=== PATIENT | female | born 1980 | race Caucasian/White ===

== ENCOUNTER 2024-04-25 17:09 | Emergency (ER) | payer MEDICAID, SELFPAY ==
[2024-04-25 17:54] VITALS: BP 138/93; PULSE 88; TEMP 36.7; O2SAT 99; BMI 29.0
--- NOTE | 2024-04-25 18:07 | CT_ITS ---
The [address] [address] Patient Name: BRUCE RAMIREZ MRN: [id number] date: 1980 Sex: F Assigned Patient Location: ER Current Patient Location: ED.MAIN Accession/Order Number: [id number] Exam Date: 04/25/2024 18:19 Report Date: 04/25/2024 20:35 At the request of: BHARAT DE SANTIAGO Procedure: CT abdomen pelvis w con CT ABDOMEN AND PELVIS WITH CONTRAST: INDICATION: abdominal pain. COMPARISON: None. TECHNIQUE:Multiple thin section transaxial slices were acquired through the abdomen and pelvis with intravenous contrast. Coronal and sagittal reconstructed images were reviewed. Oral contrastWas not administered. FINDINGS: LOWER CHEST: The lower chest is unremarkable. LIVER: The liver is unremarkable. GALLBLADDER AND BILIARY SYSTEM: No obvious ductal dilation. No calcified stones. SPLEEN: Calcified granulomas are present in the spleen. PANCREAS: The pancreas is unremarkable. ADRENAL GLANDS: The adrenal glands are unremarkable. KIDNEYS AND URETERS: There is no hydronephrosis of the kidneys.No obstructing urologic calcifications are present. VASCULATURE: Vascularity is unremarkable. PERITONEUM/RETROPERITONEUM: Peritoneum/retroperitoneum is unremarkable. LYMPH NODES: No suspicious lymphadenopathy. GASTROINTESTINAL TRACT: The bowel is normal in caliber.No acute inflammatory changes are present in the bowel.The appendix is visualized and is not inflamed. BLADDER: The urinary bladder is unremarkable. REPRODUCTIVE SYSTEM: The uterus is absent. BODY WALL: There is a tiny fat-containing umbilical hernia. BONES: Osseous structures are unremarkable. CT/CT abdomen pelvis w con IMPRESSION: 1. No acute process in the abdomen or pelvis. Electronically authenticated by: ALBINO CAGE Date: 04/25/2024 20:35
--- NOTE | 2024-04-25 18:14 | ED.ABDPAIN1 ---
HPI - Abdominal Pain General Chief Complaint: Abdominal Pain Stated Complaint: abd pain Time Seen by Provider: 04/25/24 17:58 Source: patient Mode of arrival: walk-in Limitations: no limitations History of Present Illness HPI narrative: Patient is a 44-year-old female who presents to the emergency department for diffuse upper abdominal pain, worse on the left side that has been present since last night. She states she took a gas pill today. She states she feels the abdomen is diffusely bloated. She has had no fevers, chills, vomiting or diarrhea. She does not feel nauseous. No difficulty with bowel movements. She denies urinary symptoms. She has had a previous C-sections and a previous hysterectomy. No other abdominal surgeries. Pain is worse after eating. Related Data Home Medications ?Medication ?Instructions ?Recorded ?Confirmed sertraline 100 mg tablet 200 mg Q24H 04/25/24 Previous Rx's ?Medication ?Instructions ?Recorded hyoscyamine sulfate 0.125 mg 0.125 mg PO Q6H PRN abdominal pain 04/25/24 tablet (Levsin) #12 tabs ondansetron 4 mg disintegrating 4 mg PO Q6H PRN nausea and 04/25/24 tablet vomiting #12 tabs pantoprazole 40 mg tablet,delayed 40 mg PO DAILY #7 tabs 04/25/24 release (Protonix) sucralfate 1 gram tablet (Carafate) 1 g PO Q6H PRN abdominal pain #12 04/25/24 tabs Allergies Allergy/AdvReac Type Severity Reaction Status Date / Time No Known Drug Allergies Allergy Verified 04/25/24 18:32 Review of Systems ROS Constitutional Denies: fever or chills Ears, nose, mouth, and throat Denies: throat pain or nasal congestion Cardiovascular Denies: chest pain Respiratory Denies: shortness of breath Gastrointestinal Reports: abdominal pain; Denies: nausea, vomiting or diarrhea Musculoskeletal Denies: back pain Integumentary/Breast Denies: rash Neurological Denies: numbness in extremities or weakness in extremities Hematologic/Lymphatic Denies: easy bruising or easy bleeding [facility] Medical History (Updated 04/25/24 @ 20:48 by SOPHY Cueva) Anxiety ?F41.9 - Anxiety disorder, unspecified (ICD-10) Surgical History (Updated 04/25/24 @ 18:09 by Margaret Giron) History of hysterectomy ?Z90.710 - Acquired absence of both cervix and uterus (ICD-10) Social History Within the past year, how often did you have a drink containing alcohol: 2-4 times a month Smoking status: Current every day smoker Nicotine containing products detail: 1/4 pack daily Non-prescribed substance use: denies use Little interest or pleasure in doing things: not at all Feeling down, depressed, or hopeless: not at all Exam Narrative Exam Narrative: Gen.: Awake, alert, in no distress Head: Normocephalic, atraumatic ENT: Moist mucous membranes Respiratory: No respiratory distress, lungs clear bilaterally Cardio: Regular rate and rhythm Gastrointestinal: Abdomen is soft, nondistended and diffusely tender to palpation in the left upper quadrant, epigastrium and right upper quadrant with no guarding or rebound. Mild umbilical and suprapubic tenderness noted. Extremities: Moves extremities equally Psych: Normal mood and affect Neuro: No focal neuro deficit Skin: Warm, dry, intact Constitutional Vital Signs, click to edit/add: Last Vital Signs Temp 98.5 F 04/25/24 18:58 Pulse 73 04/25/24 20:00 Resp 17 04/25/24 20:00 BP 122/89 04/25/24 20:00 Pulse Ox 99 04/25/24 20:00 O2 Del Method Room Air 04/25/24 18:58 Course Vital Signs Vital signs: Vital Signs Temperature 98.1 F 04/25/24 17:54 Pulse Rate 88 04/25/24 17:54 Respiratory Rate 18 04/25/24 17:54 Blood Pressure 138/93 H 04/25/24 17:54 Pulse Oximetry 99 04/25/24 17:54 Oxygen Delivery Method Room Air 04/25/24 17:54 Temperature 98.5 F 04/25/24 18:58 Pulse Rate 73 04/25/24 20:00 Respiratory Rate 17 04/25/24 20:00 Blood Pressure 122/89 04/25/24 20:00 Pulse Oximetry 99 04/25/24 20:00 Oxygen Delivery Method Room Air 04/25/24 18:58 MDM - Abdominal Pain MDM Narrative Medical decision making narrative: Laboratory studies reviewed and noted within normal limits, lipase is minimally elevated however not 3 times the upper limit of normal so does not qualify for acute pancreatitis. Patient was medicated for pain with improvement. She had no episodes of emesis in the ER and is hemodynamically stable. Vital signs are within normal limits. CT scan with no evidence of acute process. Patient was given education and reassurance. She was reevaluated prior to discharge and is comfortable. Carafate, Protonix, Zofran given for home. Follow-up with PCP and return to the ER if symptoms change or worsen SUPERVISED APC VISIT, PHYSICIAN ATTESTATION: Based on the medical record the care appears appropriate. ? Medical Records Attestation: I reviewed the patient's medical records. Lab Data Attestation: I reviewed the patient's lab results. Labs: Lab Results 04/25/24 04/25/24 Range/Units 18:05 18:12 WBC 9.0 (4.0-11.0) 10^3/uL RBC 4.74 (4.20-5.40) 10^6/uL Hgb 14.8 (12.0-16.0) g/dL Hct 42.7 (36.0-48.0) % MCV 90.1 (81.0-99.0) fL MCH 31.2 (26.7-34.0) pg MCHC 34.7 (29.9-35.2) g/dL RDW 12.4 (11.0-15.0) % Plt Count 173 (150-450) 10^3/uL MPV 11.0 (9.5-13.5) fL Neut % (Auto) 61.5 (43.0-75.0) % Lymph % (Auto) 30.7 (20.5-60.0) % [place] % (Auto) 6.0 (1.7-12.0) % Eos % (Auto) 0.9 (0.9-7.0) % Baso % (Auto) 0.7 (0.2-2.0) % Neut # (Auto) 5.5 (1.4-6.5) 10^3/uL Lymph # (Auto) 2.8 (1.2-3.8) 10^3/uL [place] # (Auto) 0.5 (0.3-0.8) 10^3/uL Eos # (Auto) 0.1 (0.0-0.7) 10^3/uL Baso # (Auto) 0.1 (0.0-0.1) 10^3/uL Abs Immat Gran (auto) 0.02 (0.00-0.03) 10^3/uL Imm/Tot Granulo (auto) 0.2 (0.0-0.5) % Sodium 141 (136-145) mmol/L Potassium 4.0 (3.5-5.1) mmol/L Chloride 105 (98-107) mmol/L Carbon Dioxide 26.5 (21.0-32.0) mmol/L Anion Gap 13.5 BUN 10.0 (7.0-18.0) mg/dL Creatinine 0.90 (0.55-1.02) mg/dL Est GFR ( Amer) >60 (>=60 mL/min/1.73m^2) Est GFR (Non-Af Amer) >60 (>=60 mL/min/1.73m^2) BUN/Creatinine Ratio 11.1 Glucose 97 (74-106) mg/dL Lactate 0.5 (0.4-2.0) mmol/L Calcium 8.9 (8.5-10.1) mg/dL Total Bilirubin 0.3 (0.2-1.0) mg/dL AST 9 L (15-37) U/L ALT 14 (14-59) U/L Alkaline Phosphatase 61 (46-116) U/L Total Protein 7.9 (6.4-8.2) g/dL Albumin 3.8 (3.4-5.0) g/dL Globulin 4.1 g/dL Albumin/Globulin Ratio 0.9 Lipase 94.0 H (16.0-77.0) U/L Urine Color Lt. yellow (YELLOW) Urine Clarity Clear (CLEAR) Urine pH 6.0 (5.0-9.0) Ur Specific [place] 1.025 (1.005-1.025) Urine Protein Negative (NEG/TRACE) mg/dL Urine Glucose (UA) Negative (NEGATIVE) mg/dL Urine Ketones Negative (NEGATIVE) mg/dL Urine Occult Blood Negative (NEGATIVE) Urine Nitrite Negative (NEGATIVE) Urine Bilirubin Negative (NEGATIVE) Urine Urobilinogen 0.2 (0.2-1.0) EU/dL Ur Leukocyte Esterase Negative (NEGATIVE) Imaging Data CT scan - abdomen: Attestation: I have reviewed the pertinent imaging results. Radiologist's impression: ITS Impressions Abdomen/Pelvis CT 04/25/24 18:07 IMPRESSION: 1. No acute process in the abdomen or pelvis. Electronically authenticated by: ALBINO CAGE Date: 04/25/2024 20:35 Discharge Plan Discharge Chief Complaint: Abdominal Pain Clinical Impression: Abdominal pain Patient Disposition: Home, Self-Care Time of Disposition Decision: 20:47 Condition: Good Prescriptions / Home Meds: New sucralfate [Carafate] 1 gram tablet 1 g PO Q6H PRN (Reason: abdominal pain) Qty: 12 0RF pantoprazole [Protonix] 40 mg tablet,delayed release (DR/EC) 40 mg PO DAILY Qty: 7 0RF hyoscyamine sulfate [Levsin] 0.125 mg tablet 0.125 mg PO Q6H PRN (Reason: abdominal pain) Qty: 12 0RF ondansetron 4 mg tablet,disintegrating 4 mg PO Q6H PRN (Reason: nausea and vomiting) Qty: 12 0RF No Action sertraline 100 mg tablet 200 mg Q24H Print Language: Polish Instructions: Acute Abdominal Pain (ED) Referrals: JESIKA EWING [Primary Care Provider] - 1 week
[2024-04-25 18:21] LABS: Basophils Absolute Auto 0.1 10^3/uL (0.0-0.1); Basophils Percent Auto 0.7 % (0.2-2.0); Eosinophils Absolute Auto 0.1 10^3/uL (0.0-0.7); Eosinophils Percent Auto 0.9 % (0.9-7.0); Hematocrit 42.7 % (36.0-48.0); Hemoglobin 14.8 g/dL (12.0-16.0); Immature Granulocytes Abs Auto 0.02 10^3/uL (0.00-0.03); Immature Granulocytes Pct Auto 0.2 % (0.0-0.5); Lymphocytes Absolute Auto 2.8 10^3/uL (1.2-3.8); Lymphocytes Percent Auto 30.7 % (20.5-60.0); Mean Corpuscular HGB Conc 34.7 g/dL (29.9-35.2); Mean Corpuscular Hemoglobin 31.2 pg (26.7-34.0); Mean Corpuscular Volume 90.1 fL (81.0-99.0); Monocytes Absolute Auto 0.5 10^3/uL (0.3-0.8); Neutrophils Absolute Auto 5.5 10^3/uL (1.4-6.5); Neutrophils Percent Auto 61.5 % (43.0-75.0); Platelet Count 173 10^3/uL (150-450); Red Blood Count 4.74 10^6/uL (4.20-5.40); Red Cell Distribution Width 12.4 % (11.0-15.0)
[2024-04-25 18:22] LABS: Bilirubin Urine NEGATIVE (NEGATIVE); Blood Urine NEGATIVE (NEGATIVE); Clarity Urine CLEAR (CLEAR); Color Urine LT. YELLOW (YELLOW); Glucose Urine UA NEGATIVE (NEGATIVE); Ketones Urine NEGATIVE (NEGATIVE); Leukocyte Esterase Urine NEGATIVE (NEGATIVE); Nitrite Urine NEGATIVE (NEGATIVE); Protein Urine NEGATIVE (NEG/TRACE); Specific Gravity Urine 1.025 (1.005-1.025); Urobilinogen Urine 0.2 EU/dL (0.2-1.0)
[2024-04-25 18:29] LABS: Urine Microscopic Indicated NO
[2024-04-25] MEDS: HYOSCYAMINE SULFATE 0.125 MG TAB.SUBL SL (18:32)
[2024-04-25] MEDS: KETOROLAC TROMETHAMINE 30 MG/ML VIAL IVP (18:33)
[2024-04-25 18:42] LABS: Alanine Aminotransferase 14 U/L (14-59); Albumin Globulin Ratio 0.9; Albumin Level 3.8 g/dL (3.4-5.0); Alkaline Phosphatase 61 U/L (46-116); Anion Gap 13.5; Aspartate Amino Transferase 9 U/L (15-37); BUN Creatinine Ratio 11.1; Bilirubin Total 0.3 mg/dL (0.2-1.0); Calcium 8.9 mg/dL (8.5-10.1); Carbon Dioxide 26.5 mmol/L (21.0-32.0); Chloride 105 mmol/L (98-107); Estimated GFR (African America >60 (>=60 mL/min/1.73m^2); Estimated GFR (Non-African Ame >60 (>=60 mL/min/1.73m^2); Globulin 4.1 g/dL; Glucose 97 mg/dL (74-106); Sodium 141 mmol/L (136-145); Total Protein 7.9 g/dL (6.4-8.2)
[2024-04-25 18:44] LABS: Lactate/Lactic Acid 0.5 mmol/L (0.4-2.0)
[2024-04-25 18:52] VITALS: BP 132/90; PULSE 77; O2SAT 98
[2024-04-25 18:58] VITALS: BP 122/89; PULSE 72; TEMP 36.9; O2SAT 96
--- NOTE | 2024-04-25 19:10 | PC.NURSE ---
i walked into this patient's room to find patient awake and alert talking on her nidhi phone. i did introduce myself to patient and patient aware waiting on ct results to come back and patient voices o concerns and shows no signs of distress
[2024-04-25 20:00] VITALS: BP 122/89; PULSE 73; O2SAT 99
--- NOTE | 2024-04-25 20:01 | PC.NURSE ---
this patient sitting upright on the bed awake and alert looking at her cell phone. i informed this patient still waiting on ct results. this patient voices no concerns and shows no signs of distress
[2024-04-25 21:02] VITALS: BP 129/93; PULSE 74; TEMP 36.8; O2SAT 100
--- NOTE | 2024-04-25 21:03 | PC.NURSE ---
i gave verbal and paper discharge orders along with 4 Rx to this patient and voices yes to understanding these. at time of discharge this patient voices no concerns and shows no signs of distress
== END 2024-04-25 21:04 | disposition home or self-care (01) ==
PROVIDERS: Physician Assistant; Emergency Provider Emergency Medicine; PCP Family Medicine
DX: R10.10 Upper abdominal pain, unspecified (principal); Z90.710 Acquired absence of both cervix and uterus; F17.200 Nicotine dependence, unspecified, uncomplicated
CPT/HCPCS: 36415; 74177; 80053; 81003; 83605; 83690; 85025; 96374; 99285; J1885; Q9967